=== PATIENT | male | born 1995 | race Caucasian/White ===

== ENCOUNTER 2019-10-16 17:09 | Emergency (ER) | payer SELFPAY | END 2019-10-16 17:45 | disposition home or self-care (01) | LOC: BURERS 17:09 | DX: F20.9 Schizophrenia, unspecified (principal); T23.301D Burn of third degree of right hand, unspecified site, subsequent encounter; F17.210 Nicotine dependence, cigarettes, uncomplicated; Z79.899 Other long term (current) drug therapy; Z91.14 Patient's other noncompliance with medication regimen | CPT/HCPCS: 99284 ==

== ENCOUNTER 2021-06-01 19:36 | Emergency (ER) | payer OTHER, SELFPAY ==
[2021-06-01 20:13] LABS: Bilirubin Negative (Negative); Blood, Urine Trace (Negative); Clarity Clear (Clear); Glucose, Urine (Dipstick) Negative (Negative); Ketone, Urine Negative (Negative); Leukocyte Negative (Negative); Nitrite Negative (Negative); Protein, Urine (Dipstick) Trace mg/dL (Neg-Trace); Specific Gravity, Urine 1.025 (1.005-1.030); Urobilinogen 0.2 mg/dL (Less than 2); pH, Urine 5.5 (5.0-9.0)
[2021-06-01 20:24] LABS: RBC/HPF 0-3 HPF (0-3); Squamous Epithelial None Seen HPF (0-3); WBC/HPF None Seen HPF (0-3)
[2021-06-01 20:25] LABS: Bacteria/HPF 2+ HPF (None Seen); Mucous/LPF 1+ LPF (<2+)
== END 2021-06-01 20:26 | disposition home or self-care (01) ==
LOC: BURERS 19:36
DX: S20.213A Contusion of bilateral front wall of thorax, initial encounter (principal); F17.210 Nicotine dependence, cigarettes, uncomplicated; V49.40XA Driver injured in collision with unspecified motor vehicles in traffic accident, initial encounter
CPT/HCPCS: 70450; 71046; 72125; 81003; 81015